=== PATIENT | female | born 1990 | race Caucasian/White ===

== ENCOUNTER 2025-06-18 04:07 | Emergency (ER) | payer MEDICAID ==
[~2025-06-18] VITALS: Ht 167.6 cm; Wt 69.0 kg
[2025-06-18 04:14] VITALS: O2SAT 99
[2025-06-18 05:16] LABS: BASOPHILS % 0.4 % (0.0-2.0); EOSINOPHILS % 0.2 % (0.0-5.0); HEMATOCRIT. 32.9 % (36.0-48.0); HEMOGLOBIN. 10.8 g/dL (12.0-16.0); LYMPHOCYTES % 17.7 % (20.0-50.0); MEAN PLATELET VOLUME 9.0 fl (7.4-10.4); MONOCYTES % 8.6 % (2.0-8.0); NEUTROPHILS % 73.1 % (40.0-76.0); PLATELET 241 x1000/uL (130-400); RED BLOOD CELL COUNT 3.92 mill/uL (4.2-5.4); RED CELL DISTRIBUTION WIDTH 16.7 % (11.6-14.6)
[2025-06-18 05:34] LABS: CREATININE 0.6 mg/dL (0.6-1.0); UREA NITROGEN BLOOD < 5 mg/dL (9-23)
[2025-06-18] MEDS: KETOROLAC 30MG/ML VIAL IM ONE (06:22)
[2025-06-18] MEDS: ACETAMINOPHEN 325MG TABLET PO ONE (06:22)
[2025-06-18 06:25] VITALS: TEMP 36.9
[2025-06-18 07:30] LABS: HCG SCREEN NEGATIVE
[2025-06-18 07:49] VITALS: BP 95/60; PULSE 72; RESP 19; O2SAT 100
== END 2025-06-18 07:59 | disposition home or self-care (01) ==
LOC: ER 04:07
DX: S09.8XXA Other specified injuries of head, initial encounter (principal); R51.9 Headache, unspecified; M79.642 Pain in left hand; F10.90 Alcohol use, unspecified, uncomplicated; Y04.0XXA Assault by unarmed brawl or fight, initial encounter; Y93.89 Activity, other specified; Y92.89 Other specified places as the place of occurrence of the external cause; Y99.8 Other external cause status; Y90.9 Presence of alcohol in blood, level not specified
CPT/HCPCS: 80048; 81025; 84703; 85025; 36415; 73030; 73130; 70450; 70486; 72125; 96372; 99285; J1885; Z7610